=== PATIENT | female | born 1995 | race Caucasian/White ===

== ENCOUNTER 2022-11-14 04:53 | Emergency (ER) | payer BC, SELFPAY ==
[2022-11-14 04:58] VITALS: BP 152/88; PULSE 77; RESP 16; TEMP 36.9; O2SAT 100; BMI 38.6
--- NOTE | 2022-11-14 05:08 | ED.GENADULT ---
HPI - General Adult General Time Seen by Provider: 05:09 Date Seen: 11/14/22 Chief complaint: Abdominal Pain Stated complaint: Abdominal and Back pain Time Seen by Provider: 11/14/22 04:55 Source: patient and family Mode of arrival: ambulatory Limitations: no limitations History of Present Illness HPI narrative: 27-year-old female who comes in with abdominal pain. Started around noon yesterday, worse with eating. Upper abdomen but going down the left side now. Nausea without vomiting. No diarrhea or urinary symptoms. Did not take anything for this at home. Feels similar to when she had an ulcer in the past. Prior Related Data Home Medications Medication Instructions Recorded Confirmed No Known Home Medications 11/14/22 11/14/22 Previous Rx's Medication Instructions Recorded ondansetron 4 mg disintegrating 4 mg PO Q6H PRN nausea and 11/14/22 tablet vomiting #20 tabs sucralfate 1 gram tablet (Carafate) 1 g PO Q6H #28 tabs 11/14/22 Allergies Allergy/AdvReac Type Severity Reaction Status Date / Time nickel Allergy Verified 11/14/22 06:31 Review of Systems Status of ROS: Reports: 10 or more systems reviewed and unremarkable except as noted in History and below [facility] Surgical History (Updated 11/14/22 @ 05:45 by Misty Camarena RN) History of Social History Smoking Status: Never smoker Do you use any of these nicotine containing products: None How often do you have a drink containing alcohol: never AUDIT-C Alcohol total score: 0 Non-prescribed substance use: denies use Exam Narrative: Exam Narrative: General: Well-developed and well-nourished, no acute distress Head: Atraumatic and normocephalic Eyes: Pupils are equal reactive, extraocular motions intact, conjunctiva clear ENT: External nose and ears are normal, posterior pharynx without erythema or exudate Neck: No midline cervical tenderness, full spontaneous range of motion the neck, trachea midline, no adenopathy Heart: Regular rate and rhythm no murmurs or thrills Lungs: Clear to auscultation bilaterally without wheezes or crackles Abdomen: Soft, diffuse upper and left-sided tenderness, nondistended with active bowel sounds Musculoskeletal: No tenderness, deformity, or edema Neurologic: Awake, alert, and oriented x3, no gross focal neurologic deficits, cranial nerves intact as tested Psych: Mood and affect are appropriate Skin: No rashes Const: Vital Signs, click to edit/add: Vital Signs - 24 hr 11/14/22 04:58 11/14/22 06:20 Temperature 98.5 F 98.1 F Pulse Rate [Left P ulse Oximeter] 77 71 Respiratory Rate 16 16 Blood Pressure [Ri ght Upper Arm] 152/88 H 138/77 Pulse Oximetry 100 97 Oxygen Delivery Me thod Room Air Room Air Course Course Hospital Course: Patient seen examined, prior records reviewed. Patient presents today with upper abdominal pain wrapping around to her back. Did not take anything for this at home, feels like prior ulcer. Consider gastritis, pancreatitis, acute cholecystitis. Colitis also possible less likely. Zofran, Pepcid, Toradol given. Labs and CT scan ordered Reevaluation(s) Reevaluation #1: Labs independently interpreted me demonstrate normal see what blood cell count, reassuring lipase hepatic function panel. CT scan of the abdomen and pelvis and Bentyl interpreted by me does not demonstrate any acute abnormality. Patient is feeling better and stable for discharge. Time: 06:16 Vital Signs Vital signs: Initial Vital Signs Temperature 98.5 F 11/14/22 04:58 Temperature Source Temporal Artery Scan 11/14/22 04:58 Pulse Rate 77 11/14/22 04:58 Pulse Rhythm 11/14/22 04:58 Respiratory Rate 16 11/14/22 04:58 Blood Pressure 152/88 H 11/14/22 04:58 Blood Pressure Mean 109 11/14/22 04:58 Blood Pressure Position Sitting 11/14/22 04:58 Pulse Oximetry 100 11/14/22 04:58 Oxygen Delivery Method 11/14/22 04:58 Vital Signs Temperature 98.5 F 11/14/22 04:58 Pulse Rate 77 11/14/22 04:58 Respiratory Rate 16 11/14/22 04:58 Blood Pressure 152/88 H 11/14/22 04:58 Pulse Oximetry 100 11/14/22 04:58 Oxygen Delivery Method 11/14/22 04:58 Temperature 98.1 F 11/14/22 06:20 Pulse Rate 71 11/14/22 06:20 Respiratory Rate 16 11/14/22 06:20 Blood Pressure 138/77 11/14/22 06:20 Pulse Oximetry 97 11/14/22 06:20 Oxygen Delivery Method 11/14/22 06:20 Medical Decision Making Medical Records Medical records reviewed: Yes I reviewed the patient's medical records Lab Data Lab results reviewed: Yes I reviewed the patient's lab results Labs: Lab Results 11/14/22 11/14/22 11/14/22 Range/Units 05:00 05:28 05:28 WBC 10.90 (4.50-11.00) K/uL RBC 4.85 (4.00-5.20) m/uL Hgb 14.0 (12.0-16.0) gm/dL Hct 41.8 (33.0-51.0) % MCV 86 (80-100) fL MCH 29 (26-34) pg MCHC 34 (32-36) gm/dL RDW Coeff of Joan 13.7 (11.5-15.5) % Plt Count 214 (140-440) K/uL Neut % (Auto) 63.2 (42.0-72.0) % Lymph % (Auto) 27.1 (20-44) % [place] % (Auto) 4.4 (0.0-11.0) % Eos % (Auto) 4.2 (0.0-7.0) % Baso % (Auto) 0.3 (0.0-3.0) % Neut # (Auto) 6.89 (1.7-7.0) K/uL Lymph # (Auto) 2.95 H (0.90-2.90) K/uL [place] # (Auto) 0.50 (0.00-0.90) K/UL Eos # (Auto) 0.46 (0.00-0.50) K/uL Baso # (Auto) 0.03 (0.00-0.30) K/uL Sodium 136 (135-149) mmol/L Potassium 4.0 (3.6-5.1) mmol/L Chloride 103 (96-114) mmol/L Carbon Dioxide 25 (20-32) mmol/L BUN 11 (5-24) mg/dL Creatinine 0.7 (0.5-1.5) mg/dL Estimated Creat Clear 105.17 Estimated GFR 122 ml/min Glucose 96 (60-115) mg/dL Calcium 8.5 (8.4-10.6) mg/dL Total Bilirubin (0.1-1.5) mg/dL Direct Bilirubin (0.0-0.5) mg/dL AST (12-35) U/L ALT (4-35) U/L Alkaline Phosphatase (40-150) U/L Total Protein (6.0-8.3) g/dL Albumin (3.3-5.0) g/dL Lipase (23-300) U/L HCG, Qual Negative (Negative) Urine Color Yellow (Yellow) Urine Appearance Clear (Clear) Urine pH 7.0 (5.0-8.5) Ur Specific [place] 1.020 (1.000-1.030) Urine Protein Negative (Negative) Urine Glucose (UA) Negative (Negative) Urine Ketones Negative (Negative) Urine Blood Negative (Negative) Urine Nitrite Negative (Negative) Urine Bilirubin Negative (Negative) Urine Urobilinogen 0.2 (0.2-1.0) Ur Leukocyte Esterase Negative (Negative) 11/14/22 Range/Units 05:28 WBC (4.50-11.00) K/uL RBC (4.00-5.20) m/uL Hgb (12.0-16.0) gm/dL Hct (33.0-51.0) % MCV (80-100) fL MCH (26-34) pg MCHC (32-36) gm/dL RDW Coeff of Joan (11.5-15.5) % Plt Count (140-440) K/uL Neut % (Auto) (42.0-72.0) % Lymph % (Auto) (20-44) % [place] % (Auto) (0.0-11.0) % Eos % (Auto) (0.0-7.0) % Baso % (Auto) (0.0-3.0) % Neut # (Auto) (1.7-7.0) K/uL Lymph # (Auto) (0.90-2.90) K/uL [place] # (Auto) (0.00-0.90) K/UL Eos # (Auto) (0.00-0.50) K/uL Baso # (Auto) (0.00-0.30) K/uL Sodium (135-149) mmol/L Potassium (3.6-5.1) mmol/L Chloride (96-114) mmol/L Carbon Dioxide (20-32) mmol/L BUN (5-24) mg/dL Creatinine (0.5-1.5) mg/dL Estimated Creat Clear Estimated GFR ml/min Glucose (60-115) mg/dL Calcium (8.4-10.6) mg/dL Total Bilirubin 0.6 (0.1-1.5) mg/dL Direct Bilirubin 0.3 (0.0-0.5) mg/dL AST 32 (12-35) U/L ALT 24 (4-35) U/L Alkaline Phosphatase 74 (40-150) U/L Total Protein 7.6 (6.0-8.3) g/dL Albumin 4.7 (3.3-5.0) g/dL Lipase 83 (23-300) U/L HCG, Qual (Negative) Urine Color (Yellow) Urine Appearance (Clear) Urine pH (5.0-8.5) Ur Specific [place] (1.000-1.030) Urine Protein (Negative) Urine Glucose (UA) (Negative) Urine Ketones (Negative) Urine Blood (Negative) Urine Nitrite (Negative) Urine Bilirubin (Negative) Urine Urobilinogen (0.2-1.0) Ur Leukocyte Esterase (Negative) Discharge Plan Discharge Clinical Impression: Abdominal pain Patient Disposition: Home, Self-Care Condition: Stable Instructions: Diet for Stomach Ulcers and Gastritis (ED), Abdominal Pain (ED) Additional Instructions: Take medications for nausea and pain as prescribed. Follow-up with your primary care doctor early next week. Activity Level: No Restrictions Discharge Diet: Regular Prescriptions: New ondansetron 4 mg tablet,disintegrating 4 mg PO Q6H PRN (Reason: nausea and vomiting) Qty: 20 0RF sucralfate [Carafate] 1 gram tablet 1 g PO Q6H Qty: 28 0RF No Action No Known Home Medications Follow Up/Referrals: Erin Rojas MD [Primary Care Provider] - Stand Alone Forms: [employer] Info Instructions
--- NOTE | 2022-11-14 05:11 | CRLHL7_ITS ---
For Patients: As a result of the Century Cures Act, medical imaging exams and procedure reports are released immediately into your electronic medical record. You may view this report before your referring provider. If you have questions, please contact your health care provider. INDICATION: Upper abdominal pain TECHNIQUE: Axial images were obtained from the diaphragm to the pubic symphysis. Reformats were obtained in the coronal and sagittal plane. IV Contrast: 110 cc Isovue 370 Oral Contrast: None COMPARISON: Abdomen and pelvis CT 12/24/2015 FINDINGS: Lower chest: Unremarkable. Liver: Unremarkable. Normal in size and attenuation. No masses. Gallbladder and bile ducts: Unremarkable. No stones or inflammation. No biliary dilatation. Spleen: Unremarkable. Normal in size without mass. Pancreas: Unremarkable. No mass or inflammation. Adrenal glands: Unremarkable. No nodules. Kidneys: Unremarkable. No masses, stones, or hydronephrosis. Vasculature: Unremarkable. GI tract: The stomach is unremarkable. No dilated loops of large or small intestine. Mild colonic diverticulosis. Pelvis: Trace free fluid in the pelvic cul-de-sac. The uterus is anteverted. Likely left ovarian corpus luteum measuring 2.1 centimeters. Bones: Unremarkable for age. IMPRESSION: 1. Colonic diverticulosis without evidence of diverticulitis. 2. Otherwise unremarkable abdomen and pelvis CT. Please note that all CT scans at this facility use dose modulation, iterative reconstruction, and/or weight-based dosing when appropriate to reduce radiation dose to as low as reasonably achievable. Dictated by Renato Rocha MD @ 11/14/2022 7:08:49 AM (Electronically Signed)
[2022-11-14 05:12] LABS: Appearance Urine Clear (Clear); Bilirubin Urine Negative (Negative); Blood Urine Negative (Negative); Color Urine Yellow (Yellow); Glucose Urine Negative (Negative); Ketones Urine Negative (Negative); Leukocyte Esterase Urine Negative (Negative); Nitrite Urine Negative (Negative); Protein Urine Negative (Negative); Urobilinogen Urine 0.2 (0.2-1.0)
[2022-11-14 05:14] LABS: HCG Qualitative* Negative (Negative)
[2022-11-14 05:37] LABS: Basophils Absolute Auto 0.03 K/uL (0.00-0.30); Basophils Percent Auto 0.3 % (0.0-3.0); Eosinophils Absolute Auto 0.46 K/uL (0.00-0.50); Eosinophils Percent Auto 4.2 % (0.0-7.0); Hematocrit 41.8 % (33.0-51.0); Immature Granulocytes Abs Auto 0.09 K/uL (0.00-0.30); Immature Granulocytes Pct Auto 0.8 %; Lymphocytes Absolute Auto 2.95 K/uL (0.90-2.90); Lymphocytes Percent Auto 27.1 % (20-44); Mean Corpuscular HGB Conc 34 gm/dL (32-36); Mean Corpuscular Hemoglobin 29 pg (26-34); Mean Corpuscular Volume 86 fL (80-100); Monocytes Percent Auto 4.4 % (0.0-11.0); Neutrophils Absolute Auto 6.89 K/uL (1.7-7.0); Neutrophils Percent Auto 63.2 % (42.0-72.0); Platelet Count* 214 K/uL (140-440); RDW Coefficient of Variation % 13.7 % (11.5-15.5); Red Blood Count 4.85 m/uL (4.00-5.20)
[2022-11-14] MEDS: ONDANSETRON 2 MG/ML inj 4 MG IVP (05:42)
[2022-11-14] MEDS: KETOROLAC 15 MG/ML inj IVP (05:42)
[2022-11-14] MEDS: FAMOTIDINE 10 MG/ML inj 20 MG IVP (05:42)
[2022-11-14 05:50] LABS: Albumin* 4.7 g/dL (3.3-5.0)
[2022-11-14 05:51] LABS: Chloride* 103 mmol/L (96-114); Sodium* 136 mmol/L (135-149)
[2022-11-14 05:53] LABS: Alanine Aminotransferase* 24 U/L (4-35); Alkaline Phosphatase* 74 U/L (40-150); Aspartate Amino Transferase* 32 U/L (12-35); Bilirubin Direct* 0.3 mg/dL (0.0-0.5); Bilirubin Total* 0.6 mg/dL (0.1-1.5); Lipase* 83 U/L (23-300); Total Protein* 7.6 g/dL (6.0-8.3)
[2022-11-14 05:54] LABS: Blood Urea Nitrogen* 11 mg/dL (5-24); Carbon Dioxide* 25 mmol/L (20-32); Creatinine* 0.7 mg/dL (0.5-1.5); Est. Creatinine Clearance* 105.17; Estimated Glomerular Filt Rate 122 ml/min; Glucose* 96 mg/dL (60-115)
[2022-11-14 05:55] LABS: Calcium* 8.5 mg/dL (8.4-10.6)
[2022-11-14 05:57] LABS: Slide Review Reflex No
[2022-11-14 06:20] VITALS: BP 138/77; PULSE 71; RESP 16; TEMP 36.7; O2SAT 97
== END 2022-11-14 07:18 | disposition home or self-care (01) ==
PROVIDERS: Emergency Provider Family Medicine; PCP Family Medicine
DX: R10.9 Unspecified abdominal pain (principal)
CPT/HCPCS: 36415; 74177; 80048; 80076; 81001; 81003; 81025; 83690; 84703; 85025; 96374; 96375; 99284; 99285; J1885; J2405; Q9967; S0028

== ENCOUNTER 2023-01-06 20:29 | Emergency (ER) | payer BC, SELFPAY ==
[2023-01-06 20:39] VITALS: BP 145/87; PULSE 85; RESP 16; TEMP 36.5; O2SAT 100; BMI 40.7
--- NOTE | 2023-01-06 20:59 | ED.GENADULT ---
HPI - General Adult General Chief complaint: Dizziness/Vertigo Stated complaint: headache, fatigue, dizziness Time Seen by Provider: 01/06/23 20:53 History of Present Illness HPI narrative: This 27-year-old female comes in reporting lightheadedness, headache, nausea, vomiting, and fatigue. These symptoms started in the past couple days but the lightheadedness and vomiting began today. She is 10 weeks and states that the has been going well prior to this. She arrives here with mildly or moderately elevated blood pressure with an initial systolic value of 145 and repeat value at 148. She did have nausea with emesis just prior to my arrival in the room so these blood pressures may be temporarily elevated. Related Data Home Medications Medication Instructions Recorded Confirmed No Known Home Medications 11/14/22 11/14/22 Previous Rx's Medication Instructions Recorded ondansetron 4 mg disintegrating 4 mg PO Q6H PRN nausea and 11/14/22 tablet vomiting #20 tabs sucralfate 1 gram tablet (Carafate) 1 g PO Q6H #28 tabs 11/14/22 Allergies Allergy/AdvReac Type Severity Reaction Status Date / Time nickel Allergy Verified 11/14/22 06:31 Review of Systems Status of ROS: Reports: 10 or more systems reviewed and unremarkable except as noted in History and below Narrative: Constitutional: No fevers, no weight gain or loss. Eyes: No discharge. No vision changes. HENT: No congestion, no sore throat, no ear pain. Cardiovascular: No chest pain, no palpitations. Respiratory: No shortness of breath, no wheezes, no cough. Gastrointestinal: No abdominal pain, no diarrhea. Nausea and vomiting. Genitourinary: No dysuria, no hematuria. Musculoskeletal: Normal range of motion. Skin: No rashes, no pruritis. Neurological: No dizziness, weakness, sensory change, speech change. Endo/Heme/Allergies: No bruising or bleeding. No polydipsia. Pysch: no suicidality, no anxiety, no insomnia. All other systems reviewed and are negative. [facility] Surgical History (Updated 11/14/22 @ 05:45 by Misty Camarena RN) History of ?Z98.891 - History of uterine scar from previous surgery (ICD-10) Social History Smoking Status: Never smoker Do you use any of these nicotine containing products: None How often do you have a drink containing alcohol: never AUDIT-C Alcohol total score: 0 Non-prescribed substance use: denies use Exam Narrative: Exam Narrative: Constitutional: No fevers, no weight gain or loss. Eyes: No discharge. No vision changes. HENT: No congestion, no sore throat, no ear pain. Cardiovascular: No chest pain, no palpitations. Respiratory: No shortness of breath, no wheezes, no cough. Gastrointestinal: No abdominal pain, no vomiting, no diarrhea. Genitourinary: No dysuria, no hematuria. Musculoskeletal: Normal range of motion. Skin: No rashes, no pruritis. Neurological: No dizziness, weakness, sensory change, speech change. Endo/Heme/Allergies: No bruising or bleeding. No polydipsia. Pysch: no suicidality, no anxiety, no insomnia. All other systems reviewed and are negative. Const: Vital Signs, click to edit/add: Vital Signs - 24 hr 01/06/23 20:39 Temperature 97.7 F Pulse Rate [Pulse Oximeter] 85 Respiratory Rate 16 Blood Pressure [Ri t Upper Arm] 145/87 H Pulse Oximetry 100 Oxygen Delivery Me thod Room Air Course Vital Signs Vital signs: Initial Vital Signs Temperature 97.7 F 01/06/23 20:39 Temperature Source Temporal Artery Scan 01/06/23 20:39 Pulse Rate 85 01/06/23 20:39 Respiratory Rate 16 01/06/23 20:39 Blood Pressure 145/87 H 01/06/23 20:39 Blood Pressure Mean 106 H 01/06/23 20:39 Blood Pressure Position Sitting 01/06/23 20:39 Pulse Oximetry 100 01/06/23 20:39 Oxygen Delivery Method Room Air 01/06/23 20:39 Vital Signs Temperature 97.7 F 01/06/23 20:39 Pulse Rate 85 01/06/23 20:39 Respiratory Rate 16 01/06/23 20:39 Blood Pressure 145/87 H 01/06/23 20:39 Pulse Oximetry 100 01/06/23 20:39 Oxygen Delivery Method Room Air 01/06/23 20:39 Temperature 97.7 F 01/06/23 20:39 Pulse Rate 85 01/06/23 20:39 Respiratory Rate 16 01/06/23 20:39 Blood Pressure 145/87 H 01/06/23 20:39 Pulse Oximetry 100 01/06/23 20:39 Oxygen Delivery Method Room Air 01/06/23 20:39 Medical Decision Making MDM Narrative Medical decision making narrative: This patient comes in reporting lightheadedness, headache, fatigue, nausea, and vomiting. She is 10 weeks . Her blood pressure initially is a bit elevated and needs to be monitored for hypertension in . An IV was established and labs were drawn. She did receive a L of normal saline and Zofran 4 mg in the IV. Results are pending at the end of my shift and the next ER physician will look after results and proceed accordingly. Discharge Plan Discharge Clinical Impression: , Vomiting Prescriptions: No Action No Known Home Medications ondansetron 4 mg tablet,disintegrating 4 mg PO Q6H PRN (Reason: nausea and vomiting) Qty: 20 0RF sucralfate [Carafate] 1 gram tablet 1 g PO Q6H Qty: 28 0RF Follow Up/Referrals: Erin Rojas MD [Primary Care Provider] -
[2023-01-06] MEDS: 0.9 % SODIUM CHLORIDE 1000 ml 1,000 ML IV (21:23)
[2023-01-06] MEDS: ONDANSETRON 2 MG/ML inj 4 MG IVP (21:23)
[2023-01-06 21:26] LABS: Basophils Absolute Auto 0.03 K/uL (0.00-0.30); Basophils Percent Auto 0.3 % (0.0-3.0); Eosinophils Percent Auto 3.2 % (0.0-7.0); Hematocrit 34.1 % (33.0-51.0); Hemoglobin* 11.5 gm/dL (12.0-16.0); Immature Granulocytes Abs Auto 0.04 K/uL (0.00-0.30); Immature Granulocytes Pct Auto 0.4 %; Lymphocytes Percent Auto 22.1 % (20-44); Mean Corpuscular HGB Conc 34 gm/dL (32-36); Mean Corpuscular Hemoglobin 30 pg (26-34); Mean Corpuscular Volume 88 fL (80-100); Monocytes Percent Auto 5.3 % (0.0-11.0); Neutrophils Absolute Auto 6.55 K/uL (1.7-7.0); Neutrophils Percent Auto 68.7 % (42.0-72.0); Platelet Count* 181 K/uL (140-440); RDW Coefficient of Variation % 12.8 % (11.5-15.5); Red Blood Count 3.87 m/uL (4.00-5.20); White Blood Count* 9.52 K/uL (4.50-11.00)
[2023-01-06 21:48] LABS: Slide Review Reflex No
[2023-01-06 21:57] LABS: Chloride* 100 mmol/L (96-114); Potassium* 3.8 mmol/L (3.6-5.1); Sodium* 133 mmol/L (135-149)
[2023-01-06 22:00] LABS: Blood Urea Nitrogen* 9 mg/dL (5-24); Carbon Dioxide* 25 mmol/L (20-32); Creatinine* 0.5 mg/dL (0.5-1.5); Est. Creatinine Clearance* 141.04; Estimated Glomerular Filt Rate 133 ml/min; Glucose* 89 mg/dL (60-115)
[2023-01-06 23:03] LABS: Appearance Urine Cloudy (Clear); Bilirubin Urine Negative (Negative); Blood Urine Negative (Negative); Color Urine Yellow (Yellow); Glucose Urine Negative (Negative); Ketones Urine 2+ (Negative); Leukocyte Esterase Urine Negative (Negative); Nitrite Urine Negative (Negative); Protein Urine Negative (Negative); pH Urine 6.5 (5.0-8.5)
[2023-01-06 23:31] LABS: Bacteria Urine Few; RBC Urine 0-2 (0-2); Squamous Epithelial Cell Urine Many (None-Few)
--- NOTE | 2023-01-06 23:41 | ED_ITS ---
HPI - General Adult General Chief complaint: Dizziness/Vertigo Stated complaint: headache, fatigue, dizziness Time Seen by Provider: 01/06/23 20:53 Related Data Home Medications Medication Instructions Recorded Confirmed No Known Home Medications 11/14/22 11/14/22 Previous Rx's Medication Instructions Recorded ondansetron 4 mg disintegrating 4 mg PO Q6H PRN nausea and 11/14/22 tablet vomiting #20 tabs sucralfate 1 gram tablet (Carafate) 1 g PO Q6H #28 tabs 11/14/22 Allergies Allergy/AdvReac Type Severity Reaction Status Date / Time nickel Allergy Verified 11/14/22 06:31 PFSH PFSH Surgical History (Updated 11/14/22 @ 05:45 by Misty Camarena RN) History of ?Z98.891 - History of uterine scar from previous surgery (ICD-10) Social History Smoking Status: Never smoker Do you use any of these nicotine containing products: None How often do you have a drink containing alcohol: never AUDIT-C Alcohol total score: 0 Non-prescribed substance use: denies use Exam Const: Vital Signs, click to edit/add: Vital Signs - 24 hr 01/06/23 20:39 Temperature 97.7 F Pulse Rate [Pulse Oximeter] 85 Respiratory Rate 16 Blood Pressure [Ri ght Upper Arm] 145/87 H Pulse Oximetry 100 Oxygen Delivery Me thod Room Air Course Course Hospital Course: I assumed care of this patient from Dr. Navas. She is given IV fluids and nausea and is feeling considerably better. Her CBC showed hemoglobin of 11.5 with a normal platelet count. Basic metabolic panel is normal other than a sodium of 133. Urinalysis shows 2+ ketones but no protein. Her blood pressure did improve. She has follow-up with her OB provider next week. Vital Signs Vital signs: Initial Vital Signs Temperature 97.7 F 01/06/23 20:39 Temperature Source Temporal Artery Scan 01/06/23 20:39 Pulse Rate 85 01/06/23 20:39 Respiratory Rate 16 01/06/23 20:39 Blood Pressure 145/87 H 01/06/23 20:39 Blood Pressure Mean 106 H 01/06/23 20:39 Blood Pressure Position Sitting 01/06/23 20:39 Pulse Oximetry 100 01/06/23 20:39 Oxygen Delivery Method Room Air 01/06/23 20:39 Vital Signs Temperature 97.7 F 01/06/23 20:39 Pulse Rate 85 01/06/23 20:39 Respiratory Rate 16 01/06/23 20:39 Blood Pressure 145/87 H 01/06/23 20:39 Pulse Oximetry 100 01/06/23 20:39 Oxygen Delivery Method Room Air 01/06/23 20:39 Temperature 97.7 F 01/06/23 20:39 Pulse Rate 85 01/06/23 20:39 Respiratory Rate 16 01/06/23 20:39 Blood Pressure 145/87 H 01/06/23 20:39 Pulse Oximetry 100 01/06/23 20:39 Oxygen Delivery Method Room Air 01/06/23 20:39 Medical Decision Making Lab Data Labs: Lab Results 01/06/23 01/06/23 Range/Units 21:15 22:45 WBC 9.52 (4.50-11.00) K/uL RBC 3.87 L (4.00-5.20) m/uL Hgb 11.5 L (12.0-16.0) gm/dL Hct 34.1 (33.0-51.0) % MCV 88 (80-100) fL MCH 30 (26-34) pg MCHC 34 (32-36) gm/dL RDW Coeff of Joan 12.8 (11.5-15.5) % Plt Count 181 (140-440) K/uL Neut % (Auto) 68.7 (42.0-72.0) % Lymph % (Auto) 22.1 (20-44) % [place] % (Auto) 5.3 (0.0-11.0) % Eos % (Auto) 3.2 (0.0-7.0) % Baso % (Auto) 0.3 (0.0-3.0) % Neut # (Auto) 6.55 (1.7-7.0) K/uL Lymph # (Auto) 2.10 (0.90-2.90) K/uL [place] # (Auto) 0.50 (0.00-0.90) K/UL Eos # (Auto) 0.30 (0.00-0.50) K/uL Baso # (Auto) 0.03 (0.00-0.30) K/uL Sodium 133 L (135-149) mmol/L Potassium 3.8 (3.6-5.1) mmol/L Chloride 100 (96-114) mmol/L Carbon Dioxide 25 (20-32) mmol/L BUN 9 (5-24) mg/dL Creatinine 0.5 (0.5-1.5) mg/dL Estimated Creat Clear 141.04 Estimated GFR 133 ml/min Glucose 89 (60-115) mg/dL Calcium 9.0 (8.4-10.6) mg/dL Urine Color Yellow (Yellow) Urine Appearance Cloudy A (Clear) Urine pH 6.5 (5.0-8.5) Ur Specific [place] 1.020 (1.000-1.030) Urine Protein Negative (Negative) Urine Glucose (UA) Negative (Negative) Urine Ketones 2+ A (Negative) Urine Blood Negative (Negative) Urine Nitrite Negative (Negative) Urine Bilirubin Negative (Negative) Urine Urobilinogen 1.0 (0.2-1.0) Ur Leukocyte Esterase Negative (Negative) Urine RBC 0-2 (0-2) Urine WBC 2-5 (0-5) Ur Squamous Epith Cells Many A (None-Few) Urine Bacteria Few A (None) Discharge Plan Discharge Clinical Impression: , Vomiting Patient Disposition: Home, Self-Care Condition: Improved Additional Instructions: Push fluids, avoid salt, follow-up with Dr. Herrera as scheduled. Make sure taking a vitamin daily. Prescriptions: No Action No Known Home Medications ondansetron 4 mg tablet,disintegrating 4 mg PO Q6H PRN (Reason: nausea and vomiting) Qty: 20 0RF sucralfate [Carafate] 1 gram tablet 1 g PO Q6H Qty: 28 0RF Follow Up/Referrals: Ambreen Herrera DO [Staff Physician] - Stand Alone Forms: [employer] Info Instructions
== END 2023-01-06 23:51 | disposition home or self-care (01) ==
PROVIDERS: Emergency Provider Emergency Medicine Emergency Medical Services; PCP Family Medicine
DX: O21.9 Vomiting of pregnancy, unspecified (principal)
CPT/HCPCS: 36415; 80048; 81001; 85025; 87086; 96361; 96374; 99282; 99284; J2405; J7030

== ENCOUNTER 2023-06-05 20:37 | Outpatient (CLI) | payer BC, SELFPAY ==
[2023-06-05 20:52] VITALS: BP 124/64; PULSE 82; PULSE 88; RESP 16; TEMP 36.7; O2SAT 99
[2023-06-05 21:30] LABS: Appearance Urine Slightly Cloudy (Clear); Bilirubin Urine Negative (Negative); Blood Urine Negative (Negative); Color Urine Yellow (Yellow); Glucose Urine Negative (Negative); Ketones Urine Negative (Negative); Leukocyte Esterase Urine Negative (Negative); Nitrite Urine Negative (Negative); Protein Urine Negative (Negative); Specific Gravity Urine 1.025 (1.000-1.030)
[2023-06-05 21:44] LABS: RBC Urine 0-2 (0-2); Squamous Epithelial Cell Urine Few (None-Few); WBC Urine 0-2 (0-5)
--- NOTE | 2023-06-05 23:36 | PC.OBNST ---
NST Note NST Note Start: 06/05/23 20:56 Freq: ONCE Status: Active Protocol: Document 06/05/23 22:00 WINNIE (Rec: 06/05/23 23:36 WINNIE [id number]) NST Note 3 Para (# of births) 2 EDC 08/01/23 Gestational Age In Weeks & Days 31 Weeks & 6 Days Patient Presented with Complaint(s) of Contractions/cramping,Other Other Complaints pelvic pressure Reactive Yes Appropriate for Gestational Age Yes AMANDA Toth RNC Date 06/05/23 Reactive Yes Appropriate for Gestational Age Yes AMANDA Dill RN Date 06/05/23 OB NST charge Yes Complete NST Note via Write Note Yes The provider's electronic signature indicates the NST is reactive/appropriate for gestational age. *Note to provider: If an addendum is required, open the patient's chart and click on the note under the Nurse/Allied Health tab.
== END 2023-06-05 22:00 | disposition home or self-care (01) ==
LOC: OB OUT 20:38 → OB 20:39
PROVIDERS: Family Medicine; PCP Family Medicine; Visit Provider Family Medicine
DX: O47.03 False labor before 37 completed weeks of gestation, third trimester (principal); Z3A.31 31 weeks gestation of pregnancy
CPT/HCPCS: 59025; 81003; 81015; 99213

== ENCOUNTER 2023-07-27 02:56 | Inpatient (IN) | payer BC, SELFPAY ==
[2023-07-27] VITALS (32 sets, daily range): BP systolic 88–114; BP diastolic 55–76; PULSE 79–103; RESP 16; TEMP 36.3–36.9; O2SAT 96–100; BMI 45.8
[2023-07-27 03:45] LABS: Basophils Percent Auto 0.3 % (0.0-3.0); Eosinophils Percent Auto 2.8 % (0.0-7.0); Hematocrit 38.8 % (33.0-51.0); Hemoglobin* 12.6 gm/dL (12.0-16.0); Immature Granulocytes Pct Auto 1.6 %; Lymphocytes Percent Auto 17.2 % (20-44); Mean Corpuscular HGB Conc 33 gm/dL (32-36); Mean Corpuscular Hemoglobin 27 pg (26-34); Mean Corpuscular Volume 82 fL (80-100); Monocytes Percent Auto 4.8 % (0.0-11.0); Neutrophils Percent Auto 73.3 % (42.0-72.0); Platelet Count* 159 K/uL (140-440); RDW Coefficient of Variation % 14.9 % (11.5-15.5); Red Blood Count 4.73 m/uL (4.00-5.20); White Blood Count* 11.84 K/uL (4.50-11.00)
[2023-07-27 03:46] LABS: Slide Review Reflex No
[2023-07-27 04:02] LABS: Amnisure Rom* Negative
[2023-07-27] MEDS: fentaNYL 100 MCG/2 ML inj IVP (05:15)
[2023-07-27] MEDS: LACTATED RINGERS 1000 ML 1,000 ML 100 ML IV ×2 (05:15→07:50)
[2023-07-27] MEDS: SODIUM CHLORIDE 0.9 % (FLUSH) 10 ML SYRINGE IVF (05:17)
--- NOTE | 2023-07-27 07:16 | W.PM.LDBA ---
Subjective History of Present Illness Time Seen by Provider: 07:04 Date Seen: 07/27/23 Narrative: Mag is a 28yo at 39w2d GA admitted for scheduled repeat . course is complicated by prior , chronic hypertension, obesity, asthma and cervical dysplasia. Her full history and physical was dictated by Dr. Villeda on 07/09/23. Please see this for details. She is an established patient of [facility], status post surgery consultation with Dr. Ball here on 04/27/23. Mag overall is feeling well today. She did present to triage prior to her report time this morning, with regular and painful contractions. Cervical exam was attempted but could not be palpated due to posterior position. She noted some wetness in her undergarments yesterday after walking, AmniSure was obtained and is negative. No vaginal bleeding. Endorses active movement. She received 1 dose of fentanyl 100 mcg and notes her prior contraction pain improved. Denies headache, vision changes or right upper quadrant pain. She notes she does not have high blood pressure but did have a few elevated readings in the ED in early . I explained that we would utilize a working diagnosis of chronic hypertension given these values. Past medical history: Chronic hypertension, asthma, obesity, iron deficiency anemia, prior delivery Past surgical history: delivery x1, tonsillectomy Obstetric history: G1: , G2: Primary delivery for nonreassuring heart tones. Status post TOLAC consent in this and desires repeat . OB - Problem Based A/P Additional Plan (1) 39 weeks gestation of : Status: Acute (2) Chronic hypertension: Status: Acute (3) Obesity: Status: Acute (4) Asthma: Status: Acute Plan Ms. Yepez is a 28yo admitted for scheduled repeat . course complicated by chronic hypertension, asthma, obesity, prior delivery, anemia. She is feeling well today, aside from contractions representing likely latent labor but did bring her in to triage prior to her scheduled report time. Pain is now significantly improved, no vaginal bleeding or leaking of fluids (AmniSure negative). Admit for repeat delivery - Consent was previously signed with Dr. Ball, we reviewed again the risks, benefits and alternatives to a scheduled repeat delivery. Consent was re-signed this morning. She does not desire permanent sterilization. - Administer ancef 3g prior to procedure - GBS negative - Hgb 12.6 this morning, BT B+ with active T/S on file - Add on AST, ALT, creatinine and urine protein creatinine ratio in the setting of chronic hypertension for baseline labs OB Exam Physical Exam Vital signs: Temp Pulse BP 98.3 F 93 113/66 07/27/23 04:21 07/27/23 03:42 07/27/23 03:42 Narrative: Physical exam: General: No acute distress Psych: Alert and oriented x3, full affect Heart: Regular rate and rhythm, no murmur rub or gallop Lungs: Clear to auscultation bilaterally Abdomen: Gravid. Otherwise soft and nontender. Growth US on 06/18/23 was 84%ile, 3800g by my bedside Edilberto. heart rate: Reactive NST. Baseline of 140 beats per minute, moderate variability, accelerations present, decelerations absent. Presentation: Cephalic by Edilberto
[2023-07-27] MEDS: CEFAZOLIN 1 GM inj 3 GM IVP (07:51)
--- NOTE | 2023-07-27 08:14 | W.ANESCHARGE ---
Anesthesia Charges Start Date/Time Anesthesia Start Date: 07/27/23 Anesthesia Start Time: 07:33 Stop Date/Time Anesthesia Stop Date: 07/27/23 Anesthesia Stop Time: 09:10
[2023-07-27 08:31] LABS: Aspartate Amino Transferase* 22 U/L (12-35); Creatinine* 0.4 mg/dL (0.5-1.5); Est. Creatinine Clearance* 174.76; Estimated Glomerular Filt Rate 139 ml/min
[2023-07-27 08:32] LABS: Alanine Aminotransferase* 16 U/L (4-35)
[2023-07-27] MEDS: KETOROLAC 30 MG/ML inj IVP ×3 (08:42→20:30)
--- NOTE | 2023-07-27 08:53 | PM.OBPRCCS ---
OB Delivery Proc Additional Procedures Tubal Ligation at the time of : No Procedure Time Seen by Provider: 08:30 Date of procedure: 07/27/23 Pre-op diagnosis: 39 weeks gestation, chronic hypertension, asthma, obesity Procedure Done: only Will [facility] bill your pro fee for this procedure?: Yes Blood Loss Measurement Type: QBL (601) Bakri Used: No Surgeon: Elsa Barksdale MD Anesthesia Type: Spinal Findings: Mild adhesive disease between the omentum and anterior abdominal wall Cephalic fetus Unremarkable uterus, tube and ovaries Procedure Name: Repeat Delivery Procedure Description: PROCEDURE IN DETAIL: Patient was taken to the operating room with IV running. She received cefazolin 3g in preoperative prophylaxis. Spinal anesthesia was administered. Mccrary catheter was inserted. She was prepped and draped in the usual sterile fashion. Anesthesia was tested and found to be adequate. A low-transverse skin incision was made with a scalpel and carried through to the underlying layer of fascia with the scalpel. The subcutaneous fat was dissected off the underlying fascia with Bovie and blunt dissection. The fascia was nicked in the midline with a scalpel, and this incision was extended laterally with scissors. The rectus muscles were in the midline. Peritoneum was identified and entered bluntly. Adhesions were noted between the omentum and anterior abdominal wall, reduced to allow adequate access to the pelvis with serial transection/ligation via bovie. Bovie and gentle lateral traction were utilized to expand the space laterally. Loyd O retractor was inserted and tightened down, providing excellent visualization of the lower uterine segment. The bladder reflection was found to have advanced up the lower uterine segment, where a bladder flap was developed with arnol mane and gentle blunt traction until it was well below the planned site for hysterotomy. Low-transverse uterine incision was made with a scalpel. Incision was widened bluntly. The 's head was grasped through the hysterotomy and delivered with the help of fundal pressure. The remainder of the body delivered without incident. Cord was clamped and cut after 30 seconds. Infant was handed off to attending nurses. The placenta was delivered with gentle traction on the cord. The uterus was cleaned of all clots and debris with the dry lap pad. The hysterotomy was reapproximated with 0 Vicryl in a running, locked fashion. Second layer of the same suture was used in imbricating fashion with 0 vicryl to obtain hemostasis. Small extension at the left hysterotomy margin was noted, reinforced with 2 [id number] sutures x2 with 0 vicryl. Excellent hemostasis was noted. This extension did approximate the left broad ligament, where we did inspect fully (anterior and posterior) to ensure closure was free. The adnexa were examined and noted to be normal in appearance. The cul-de-sac and gutters were cleansed with dampened laparotomy sponge, removing any further clots and debris. Bladder flap was inspected and noted to be hemostatic. The Loyd O retractor was removed. The hysterotomy was reexamined and found to be hemostatic. The rectus muscles were examined and Bovie was utilized for hemostasis as needed. The fascia was reapproximated with 0 PDS in a running fashion. Subcutaneous fat was irrigated and Bovie used on oozing vessels. The subcutaneous fat was reapproximated with 2-0 vicryl in an interrupted fashion. The skin was closed with a subcuticular stitch of 3-0 Monocryl. Surgical glue was applied above this. A surgical dressing was applied. Patient tolerated procedure well was taken to recovery area in stable condition. Complications: None Pathology: specimen obtained, sent to pathology Surgery Debrief Performed: Yes Surgery Debrief Comment: Procedure, QBL, toradol use and specimen (placenta to pathology) confirmed by surgeon, circulating RN and anesthesia provider Condition: stable Disposition: floor
--- NOTE | 2023-07-27 09:17 | W.ANESCHARGE ---
Anesthesia Charges Start Date/Time Anesthesia Start Date: 07/27/23 Anesthesia Start Time: 07:33 Stop Date/Time Anesthesia Stop Date: 07/27/23 Anesthesia Stop Time: 09:10
--- NOTE | 2023-07-27 09:18 | P.NB_ITS ---
Nerve Block Nerve Block Time Seen by Provider: 09:01 Date Seen: 07/27/23 Type of block requested by surgeon for post-operative analgesia: TAP Side: bilateral Time out performed: Yes Verification of patient name: Yes Verification of date of : Yes Site marking: site marked Name of person performing procedure: Kristian Continuous monitoring Was continuous monitoring of O2 sat, B/P, cardiac technologist, recorded every 15 minutes?: Yes Procedure Checklist: sterile prep, needles and gloves Ultrasound guided. Images saved: Yes Medications given in 5ml increments after negative aspiration: Marcaine %: 0.25 mL: 30 Needle gauge: 20 and Exparel mL: 10 Patient tolerated procedure well: Yes Additional comments: Needle noted adjacent to nerve Block Charges Block Charge (with Pro Fee): TAP Bilateral Use of Ultrasound Machine for Block: Yes- US Guidance/pain block
[2023-07-27] MEDS: LACTATED RINGERS 1000 ML 1,000 ML 125 ML IV (10:15)
[2023-07-27 13:28] LABS: Total Protein Urine 28 mg/dL
[2023-07-27 13:30] LABS: Creatinine Urine 207.1 mg/dL
[2023-07-27] MEDS: DOCUSATE SODIUM 100 MG CAPSULE PO (14:48)
[2023-07-27] MEDS: ENOXAPARIN 40 MG/0.4 ML INJ SUBCUT (20:21)
[2023-07-28] VITALS (12 sets, daily range): BP systolic 106–121; BP diastolic 71–81; PULSE 84–112; RESP 16–18; TEMP 36.5–36.8; O2SAT 95–98
[2023-07-28] MEDS: ACETAMINOPHEN 500 MG TABLET 1000 MG PO ×3 (01:02→19:56)
[2023-07-28] MEDS: KETOROLAC 30 MG/ML inj IVP ×3 (03:01→15:14)
[2023-07-28 07:02] LABS: Hemoglobin* 9.9 gm/dL (12.0-16.0)
--- NOTE | 2023-07-28 07:37 | PM.OBPNVD1 ---
OB - PN:Subj Subjective Time Seen by Provider: 07:45 Date Seen: 07/28/23 Interval history: Alvina is a 28 y.o. who was admitted to [facility] for a scheduled repeat . She was likely in latent labor just prior to being admitted.? She had an uncomplicated repeat .? ? ? Narrative: The patient feels well.? The pain is well controlled with current medications.? She has no new complaints.? She is breast feeding and reports things are overall going well.? Would like to see to help set up her pump. Baby also struggling to latch on one of the sides. the patient has done well.? Vitals have been stable.? She has remained afebrile.? Has a good appetite, is tolerating a general diet.? She is voiding without difficulty.? She is passing gas and has not had a bowel movement.? She is ambulating and denies any dizziness.? Has Small amount of rubra lochia.? OB - PN: Obj Exam Physical Exam: Vital signs: Temp Pulse Resp BP Pulse Ox O2 Del Method 97.8 F 96 16 116/76 96 Room Air 07/28/23 04:28 07/28/23 04:28 07/28/23 06:30 07/28/23 04:28 07/28/23 04:28 07/28/23 04:28 Narrative: VSS. Afebrile GENERAL APPEARANCE: ?normal affect, alert, no distress MOOD: ?appropriate HEENT: normocephalic, neck supple, full ROM CHEST: ?Symmetrical chest wall movement. ?Normal respiratory effort. ?Clear to auscultation HEART: ?regular rate and rhythm ABDOMEN: ?soft, non-tender. Uterine fundus is firm, at Umbilicus, Midline and is appropriate for the stage of recovery. ?Bowel sounds present. EXTREMITIES: ?normal and trace edema SKIN: warm, dry. Dressing on, clean/dry/intact. No signs of infection noted. Urinary Catheter Management: Urethral: Cath placed during this visit: yes, but has since been removed by the nurse Reason for continuing: decision to DC catheter Insertion date: 07/27/23 Insertion time: 07:30 Removal date: 07/27/23 Removal time: 17:00 OB - PN: Obj Data Labs Labs: Laboratory Results - last 24 hr 1107/27/23 07/27/23 03:30 07:16 Unknown Hgb Creatinine 0.4 L Estimated Creat Clear 174.76 Estimated GFR 139 AST 22 ALT 16 Urine Creatinine 207.1 Protein/Creatinin Ratio 0.10 Urine Total Protein 28 Lab Acknowledgement Test Added 07/28/23 06:53 Hgb 9.9 L Creatinine Estimated Creat Clear Estimated GFR AST ALT Urine Creatinine Protein/Creatinin Ratio Urine Total Protein Lab Acknowledgement OB - PN: A/P Delivery Assessment and Plan (1) Status post repeat low transverse section: Status: Acute (2) Lactating mother: Status: Acute (3) Chronic hypertension: Status: Acute (4) Obesity: Status: Acute (5) Asthma: Status: Acute Plan day: 1 Plan: routine care Comments: Assessment/Plan? G 3 P 3 status post uncomplicated repeat .? ?? 1.? Continue route PP cares? 2.? .? May see if desired? 3.? Anticipate discharge home tomorrow or the following day per pt preference. 4.? Acute anemia.? Iron supplement declined at this time. She would like to wait until after she has had a bowel movement. Also has a supplement at home if she wants to restart it PP. 5. Possible chronic hypertension. A few elevated BPs noted early in the in the ER. Nothing further in the chart during her , and pt denies being told she was chronic. BPs WNL at this time. ?Labs also WNL yesterday.
[2023-07-28] MEDS: DOCUSATE SODIUM 100 MG CAPSULE PO (08:56)
[2023-07-28] MEDS: OXYCODONE 5 MG TABLET PO ×2 (13:28→20:49)
[2023-07-28] MEDS: LANOLIN CREAM 1 APPLIC TOPICAL (19:56)
[2023-07-28] MEDS: ENOXAPARIN 40 MG/0.4 ML INJ SUBCUT (20:53)
[2023-07-28] MEDS: IBUPROFEN 600 MG TABLET PO (22:31)
[2023-07-29] VITALS: BP 124/84; PULSE 117; RESP 18; TEMP 36.7; O2SAT 97
[2023-07-29] MEDS: OXYCODONE 5 MG TABLET PO ×3 (00:57→10:22)
[2023-07-29] MEDS: IBUPROFEN 600 MG TABLET PO ×2 (04:33→10:22)
[2023-07-29 07:25] VITALS: BP 111/77; PULSE 95; RESP 18; TEMP 36.4; O2SAT 96
--- NOTE | 2023-07-29 07:48 | PM.OBDSVD1 ---
DS: Providers Provider Date Seen: 07/29/23 Date of admission: 07/27/23 02:56 Primary care physician: Erin Rojas MD Admitting Clinician: Daniella Barksdale MD Attending Physician on discharge: Jewel Culver CNM Date of Discharge: 07/29/23 DS: Diagnosis Discharge Diagnosis (1) Status post repeat low transverse section: Status: Acute (2) Lactating mother: Status: Acute (3) care and examination immediately after delivery: Status: Acute Exam Narrative: Exam Narrative: VSS. ?AfebrileGENERAL APPEARANCE: ?normal affect, alert, no distress MOOD: ?appropriate HEENT: normocephalic, neck supple, full ROM CHEST: ?Symmetrical chest wall movement. ?Normal respiratory effort. ?Clear to auscultation HEART: ?regular rate and rhythm ABDOMEN: ?soft, non-tender. Uterine fundus is firm, 2 below Umbilicus, Midline and is appropriate for the stage of recovery. ?Bowel sounds present. EXTREMITIES: ?normal and no edema SKIN: warm, dry. ? ?Incision clean/dry/well approximated. ?No signs of infection noted. Const: Vital Signs, click to edit/add: Vital Signs - 24 hr 07/28/23 09:00 07/28/23 15:29 07/29/23 00:00 Temperature 97.7 F 98.3 F 98.0 F Pulse Rate [Blood Pressure Cuff] 84 112 H 117 H Respiratory Rate 16 18 Blood Pressure [Ri ght Arm] 106/71 119/81 124/84 Pulse Oximetry 98 97 97 Oxygen Delivery Me thod Room Air Room Air Room Air Documenting provider has reviewed patient's vital signs: yes OB - DS: Summary Hospital Course Hospital Course: Mag is a 28 y.o. who was admitted to [facility] for repeat section . ?She had an uncomplicated .?The patient feels well. ?The pain is well controlled with current medications. ?She has no new complaints. ?She is breast feeding and reports things are going well.? the patient has done well.? Vitals have been stable.? She has remained afebrile.? Has a good appetite, is tolerating a general diet. ?She is voiding without difficulty.? She is passing gas and has had a bowel movement.? She is ambulating and denies any dizziness.? Has Small amount of rubra lochia. ?She is planning Kyleena IUD for prevention. Peripartum Data delivery method: Repeat Section Laceration description: None Procedures: Procedures Operation Date: 07/27/23 07:15 Actual Procedure Side Surgeon p Repeat Section Daniella Barksdale MD complications: none [place] Gender: Female Infant Discharge Plan: Home Status at Discharge Functional status at discharge: independent ambulation Overall status at discharge: patient is progressing back to baseline Time Spent with Patient Time attestation: Total time spent providing and/or coordinating discharge services: Time spent: Less than 30 minutes Discharge Plan Discharge Disposition: Home, Self-Care Date of Admission: 07/27/23 02:56 Attending Provider on Discharge: Jewel Culver Primary Care Provider: Erin Rojas Condition: Stable Anticipated Discharge Date/Time: 07/29/23 12:00 Discharge Medications: New acetaminophen 500 mg Tablet 1,000 mg PO Q6H PRN (Reason: Pain) Qty: 0 0RF docusate sodium 100 mg Capsule 100 mg PO DAILY Qty: 90 3RF ibuprofen 600 mg Tablet 600 mg PO Q6H PRN (Reason: Pain) Qty: 60 0RF oxycodone 5 mg Tablet 5 - 10 mg PO Q4H PRN (Reason: Pain) Qty: 10 0RF Continued DHA 200 mg capsule 200 mg PO DAILY ferrous sulfate [Feosol] 325 mg (65 mg iron) tablet 325 mg PO Q OTHER DAY Discontinued aspirin 81 mg tablet,delayed release (DR/EC) 81 mg PO QDAY ondansetron 4 mg tablet,disintegrating 4 mg PO Q6H PRN (Reason: nausea and vomiting) Qty: 20 0RF Discharge Orders: Discharge Order (Routine); Ordered 07/29/23 Ordered By: Jewel Culver Patient Education: OB Over the Counter Medication Information, OB /Breast Feeding Additional Instructions: Discharge instructions were reviewed with the patient including signs and symptoms of infection and home going medications Lifting Restrictions: 20 pounds for 6 weeks No not submerge incision under water X 2 weeks? Nothing vaginally for 6 weeks: no tampons or intercourse Do not drive while taking narcotic pain medication(s) Off Work or School for 6 weeks 2-week visit: incision check, discuss feeding concerns, review control options and screen for anxiety/depression. 6-week visit for an annual exam. consultation services are available to all mothers and babies for the first year after delivery.? To make an appointment, please call [phone]. Activity Level: Activity as Tolerated Discharge Diet: Regular Follow Up Appointments: Erin Rojas MD [Primary Care Provider] - [facility] [Provider Group] Forms: [employer] Info Instructions
[2023-07-29] MEDS: DOCUSATE SODIUM 100 MG CAPSULE PO (09:13)
== END 2023-07-29 11:00 | disposition home or self-care (01) | DRG 540 ==
PROVIDERS: Family Medicine; Admitting Provider Obstetrics & Gynecology; PCP Family Medicine; Visit Provider Obstetrics & Gynecology
PROC: 10D00Z1 Extraction of Products of Conception, Low, Open Approach (ICD-10-PCS; CPT 59514; principal; 2023-07-27 07:15)
DX: O34.211 Maternal care for low transverse scar from previous cesarean delivery (principal); Z3A.39 39 weeks gestation of pregnancy; Z37.0 Single live birth; O99.214 Obesity complicating childbirth; N87.9 Dysplasia of cervix uteri, unspecified; O10.92 Unspecified pre-existing hypertension complicating childbirth; G89.18 Other acute postprocedural pain; J45.909 Unspecified asthma, uncomplicated; O90.81 Anemia of the puerperium
CPT/HCPCS: 01961; 36415; 64488; 76942; 82565; 82570; 84112; 84156; 84450; 84460; 85018; 85025; 86850; 86900; 86901; 88307; T1013; A9270; C9290; J0665; J0690; J1100; J1650; J1885; J2274; J2371; J2405; J2590; J3010; J7120